=== PATIENT | female | born 1965 | race Caucasian/White ===

== ENCOUNTER 2018-07-14 18:27 | Emergency (ER) | payer MEDICAID ==
[~2018-07-14] VITALS: Ht 162.6 cm; Wt 74.4 kg
[2018-07-14 18:40] VITALS: BP 173/77
[2018-07-14] MEDS ORDERED: GENTAMICIN 80 MG/2 ML VIAL ONE (20:34)
[2018-07-14] MEDS ORDERED: KETOROLAC 30 MG/ML VIAL IM ONE (21:00)
[2018-07-14 22:45] VITALS: BP 155/69
== END 2018-07-14 22:45 | disposition left against medical advice (07) ==
LOC: MED 18:27
DX: M79.604 Pain in right leg (principal)
CPT/HCPCS: 76881; 93971; 99284; Q0092; J1580; J1885